=== PATIENT | male | born 1985 | race Caucasian/White ===

== ENCOUNTER 2016-07-24 10:56 | Emergency (ER) | payer OTHER ==
[2016-07-24 11:42] LABS: HEMOGLOBIN 17.5 gm/dl (14.0-17.5); RED BLOOD COUNT 6.26 M/UL (4.20-5.50); WHITE BLOOD COUNT 7.4 K/UL (4.5-11.0)
[2016-07-24 11:59] LABS: BUN/CREATININE RATIO 12 (0-10)
== END 2016-07-24 15:55 | disposition home or self-care (01) ==
LOC: ER1 10:56
PROVIDERS: Physician Assistant Medical
DX: J02.9 Acute pharyngitis, unspecified (principal); R73.9 Hyperglycemia, unspecified; Z88.0 Allergy status to penicillin
CPT/HCPCS: 36415; 70491; 80053; 82009; 82800; 82962; 85025; 96372; 99283; J1815; J7050; Q9962

== ENCOUNTER → 2020-06-17 | Outpatient (CLI) | payer OTHER | LOC: KOH-I 13:23 | DX: N17.9 Acute kidney failure, unspecified (principal) | CPT/HCPCS: 76775 ==

== ENCOUNTER → 2020-07-27 | Outpatient (CLI) | payer OTHER ==
[2020-07-27 17:56] LABS: BUN/CREATININE RATIO 15 (0-10)
[2020-07-29 08:15] LABS: HBSAG SCREEN Negative (Negative); HCV ANTIBODY <0.1 (0.0-0.9)
[2020-07-29 09:15] LABS: COMPLEMENT C3, SERUM 182 mg/dL (82-167); COMPLEMENT C4, SERUM 28 mg/dL (12-38)
[2020-07-29 11:15] LABS: CREATININE, URINE 198.6 mg/dL (Not Estab.)
[2020-07-29 15:12] LABS: ANTI-DSDNA ANTIBODIES 5 IU/mL (0-9)
[2020-07-29 16:12] LABS: A/G RATIO 1.2 (0.7-1.7); ALBUMIN 4.3 g/dL (2.9-4.4); ALPHA-1-GLOBULIN 0.3 g/dL (0.0-0.4); ALPHA-2-GLOBULIN 0.8 g/dL (0.4-1.0); BETA GLOBULIN 1.4 g/dL (0.7-1.3); GAMMA GLOBULIN 1.4 g/dL (0.4-1.8); GLOBULIN, TOTAL 3.9 g/dL (2.2-3.9); IMMUNOGLOBULIN A, QN, SERUM 213 mg/dL (90-386); IMMUNOGLOBULIN G, QN, SERUM 1342 mg/dL (603-1613); IMMUNOGLOBULIN M, QN, SERUM 94 mg/dL (20-172); M-SPIKE Not Observed g/dL (Not Observed); PROTEIN, TOTAL, SERUM 8.2 g/dL (6.0-8.5)
[2020-07-30 11:14] LABS: ANTIGLOMERULAR BM AB 3 units (0-20)
[2020-07-30 17:09] LABS: ANTIMYELOPEROXIDASE (MPO) ABS <9.0 U/mL (0.0-9.0); ANTIPROTEINASE 3 (PR-3) ABS <3.5 U/mL (0.0-3.5); ATYPICAL PANCA <1:20 titer (Neg:<1:20); CYTOPLASMIC (C-ANCA) <1:20 titer (Neg:<1:20); PERINUCLEAR (P-ANCA) <1:20 titer (Neg:<1:20)
== END ==
LOC: LAB 17:00
PROVIDERS: Internal Medicine Nephrology
DX: N17.9 Acute kidney failure, unspecified (principal)
CPT/HCPCS: 36415; 80053; 82043; 82570; 82784; 83520; 84155; 84156; 84165; 86038; 86160; 86162; 86225; 86256; 86334; 86803; 87340; 89050

== ENCOUNTER → 2020-08-25 | Outpatient (CLI) | payer OTHER | LOC: LAB 11:32 | DX: N17.9 Acute kidney failure, unspecified (principal) | CPT/HCPCS: 82570; 84156 ==

== ENCOUNTER 2020-12-31 17:23 | Emergency (ER) | payer OTHER ==
[2020-12-31] MEDS ORDERED: CYCLOBENZAPRINE10 MG PO (21:09)
[2020-12-31] MEDS ORDERED: IBUPROFEN800 MG PO (21:09)
== END 2020-12-31 21:20 | disposition home or self-care (01) ==
LOC: ER1 17:23
DX: S16.1XXA Strain of muscle, fascia and tendon at neck level, initial encounter (principal); V49.50XA Passenger injured in collision with unspecified motor vehicles in traffic accident, initial encounter; W22.12XA Striking against or struck by front passenger side automobile airbag, initial encounter; Y92.410 Unspecified street and highway as the place of occurrence of the external cause
CPT/HCPCS: 70450; 71250; 72125; 96374; 99283; J1885

== ENCOUNTER → 2021-11-10 | Outpatient (CLI) | payer OTHER ==
[~2021-11-10] MED LIST: CYCLOBENZAPRINE10 MG PO; IBUPROFEN800 MG PO
== END ==
LOC: LAB 16:41
DX: G47.10 Hypersomnia, unspecified (principal)
CPT/HCPCS: 36415; 84436; 84439; 84443